=== PATIENT | female | born 1955 | race Caucasian/White ===

== ENCOUNTER 2019-11-22 06:18 | Emergency (ER) | payer MEDICARE ==
[~2019-11-22] VITALS: Ht 154.9 cm; Wt 86.2 kg
--- NOTE | 2019-11-22 06:27 | NUR ---
PT AMBULATORY TO BATHROOM, STEADY GAIT.
[2019-11-22] MEDS ORDERED: SODIUM CHLORIDE 0.9% 1,000 ML IV ONE (06:32)
--- NOTE | 2019-11-22 06:39 | NUR ---
PT TO IMAGING.
[2019-11-22 06:53] LABS: MICROSCOPIC INDICATED
[2019-11-22] MEDS ORDERED: HYDROmorphone 1 MG/ML, 1ML INJ ONE (07:00)
[2019-11-22] MEDS ORDERED: ONDANSETRON 2MG/ML, 2ML IVPush ONE (07:00)
[2019-11-22] MEDS ORDERED: HYDROmorphone 2 MG/ML, 1ML IVPush PRN (07:00)
[2019-11-22] MEDS ORDERED: ONDANSETRON 2MG/ML, 2ML ONE (07:01)
--- NOTE | 2019-11-22 07:09 | NUR ---
REPORT GIVEN TO MAKENZIE GARCIA; TO ASSUME FULL CARE.
--- NOTE | 2019-11-22 07:26 | NUR ---
REPORT RECEIVED FROM KLAUDIA BANEGAS.
--- NOTE | 2019-11-22 07:28 | NUR ---
PIV EST ON R HAND WITH NO COMPLICATIONS. PT MEDICATED PER EMAR. NS INFUSING AT THIS TIME. PT TOLERATED WELL.
[2019-11-22 08:04] LABS: BASOPHILS # (AUTO) 0.03 x10^3/uL (0-0.1); BASOPHILS % (AUTO) 0 % (0-1); EOSINOPHILS # (AUTO) 0.05 x10^3/uL (0-0.4); EOSINOPHILS % (AUTO) 1 % (1-7); LYMPHOCYTES # (AUTO) 1.02 x10^3/uL (1-3.4); LYMPHOCYTES % (AUTO) 11 % (22-44); MD NO; MEAN CORPUSCULAR HEMOGLOBIN 29.2 pg (27.0-34.8); MEAN CORPUSCULAR HGB CONC 32.3 g/dL (32.4-35.8); MEAN CORPUSCULAR VOLUME 90.4 fL (80-100); MEAN PLATELET VOLUME 8.4 fL (7.4-10.4); MONOCYTES # (AUTO) 0.41 x10^3/uL (0.2-0.8); MONOCYTES % (AUTO) 4 % (2-9); NEUTROPHILS # (AUTO) 8.21 x10^3/uL (1.8-6.8); NEUTROPHILS % (AUTO) 84 % (42-75); PLATELET COUNT 339 x10^3/uL (130-400); RED BLOOD COUNT 5.01 x10^6/uL (3.82-5.3); RED CELL DISTRIBUTION WIDTH 14.1 % (9.6-15.2)
[2019-11-22 08:06] LABS: ALBUMIN 3.4 g/dL (3.4-5.0); ANION GAP 5 mmol/L (5-15); CALCIUM 9.7 mg/dL (8.5-10.1); CHLORIDE 109 mmol/L (98-107)
[2019-11-22 08:09] LABS: ALANINE AMINOTRANSFERASE 17 U/L (12-78); ALKALINE PHOSPHATASE 77 U/L (45-117); BILIRUBIN,TOTAL 0.6 mg/dL (0.2-1.0); CREATININE 1.08 mg/dL (0.55-1.02); TOTAL PROTEIN 7.2 g/dL (6.4-8.2)
--- NOTE | 2019-11-22 08:39 | NUR ---
pt resting in gurney. pt's pain level is still 9/10 at this time. pt refused one more dose of dilaudid at this time.
[2019-11-22] MEDS ORDERED: ENALAPRILAT 1.25 MG/ML, 1ML ONE (09:05)
[2019-11-22] MEDS ORDERED: KETOROLAC 30 MG/1 ML ONE (09:29)
[2019-11-22] MEDS ORDERED: ENALAPRILAT 1.25 MG/ML, 2ML IV ONE (09:30)
[2019-11-22] MEDS ORDERED: KETOROLAC 30 MG/1 ML IVPush ONE (09:30)
--- NOTE | 2019-11-22 09:41 | NUR ---
PT MEDICATED PER EMAR. PT TOLERATED WELL.
--- NOTE | 2019-11-22 10:15 | NUR ---
PT BACK TO ROOM FROM CT AT THIS TIME.
[2019-11-22 10:28] VITALS: BP 165/73
--- NOTE | 2019-11-22 10:42 | NUR ---
Patient given discharge instructions and they have confirmed that they understand the instructions. Patient ambulatory with steady gait.
[2019-11-22] MEDS ORDERED: OMNIPAQUE 350 MG/ML, 100ML BOTTLE ONE (10:54)
== END 2019-11-22 10:43 | disposition home or self-care (01) ==
LOC: ED 07:05
DX: R10.32 Left lower quadrant pain (principal); I10 Essential (primary) hypertension
CPT/HCPCS: 36415; 74176; 74177; 76700; 80053; 81001; 83690; 85025; 96374; 96375; 99285; J1170; J1885; J2405; J7030; Q9967

== ENCOUNTER → 2020-01-21 | Outpatient (CLI) | payer MEDICARE | END | disposition home or self-care (01) | LOC: CVU 13:12 | PROVIDERS: ATTEND Nurse Practitioner Family | DX: I08.2 Rheumatic disorders of both aortic and tricuspid valves (principal) | CPT/HCPCS: 93306; 93356 ==